=== PATIENT | female | born 1955 | race Caucasian/White ===

== ENCOUNTER 2021-10-28 16:48 | Outpatient (CLI) | payer OTHER, BC, SELFPAY ==
--- OUTSIDE RECORDS SUMMARY | 2021-11-05 11:22 | XMS_ITS | Clinical Summary ---
:1955 Author Organization [employer] [facility] [place] [address] Care Team Providers Name Role Phone Shahida Muir MD Primary Care Provider + [phone] Allergies Active Allergy Reactions Severity Noted Date Comments Unlisted Allergen (Include Detail In Hives 07/2017 Red Dye 3 Comments) Oxycodone-Acetaminophen Hives 02/22/2012 Medications Medication Sig Dispensed Refills Start Date End Date Status metFORMIN (GLUCOPHAGE Take 1 Tablet (500 90 Tablet 4 1 Active XR) 500 mg mg) by mouth once Extended-Release daily with a meal. tabletIndications: Insulin resistance Active Problems Problem Noted Date Insulin resistance 12/07/2015 Vitamin D deficiency 06/19/2013 Pre-diabetes 08/18/2011 Depressive disorder, not elsewhere classified 10/27/19 07 Migraine, unspecified, without mention of intractable migraine without 10/26/2006 mention of status migrainosus Obesity, unspecified 10/26/2006 Immunizations Name Administration Dates Next Due Influenza, IIV3 (Age >=3 years) 12/18/2007 Influenza, IIV4 01/05/2021, 11/05/2019, 10/23/2018, 03/13/2018 Td (Age >=7 Years) 09/11/2017 Tdap 09/12/2018, 10/26/2006 Zoster (Shingrix-RZV, recombinant) 12/25/2018, 10/23/2018 Family History Medical History Relation Name Comments Diabetes Brother Other Daughter migraine Psychiatric illness Daughter Dementia Father Diabetes Father Cancer-breast Maternal Aunt Other Maternal Grandmother migraine Psychiatric illness Maternal Grandmother Cancer-colon Maternal Uncle maternal uncle Other Mother migraine Psychiatric illness Mother Cancer-prostate Paternal Uncle Diabetes Sister Relation Name Status Comments Brother Alive Daughter Father Alive Maternal Aunt Maternal Grandmother Maternal Uncle maternal uncle Mother Alive Paternal Uncle Sister Alive Social History Tobacco Use Types Packs/Day Years Used Date Former Smoker Cigarettes 0.5 15 Quit: 02/06/18 90 Smokeless Tobacco: Never Used Tobacco Cessation: Counseling Given: Yes Alcohol Use Standard Drinks/Week Comments Yes 0 (1 standard drink = 0.6 oz pure alcoho l) rarely Alcohol Habits Answer Date Recorded How often do you have a drink containing alcohol? Not asked How many drinks containing alcohol do you have on a typical Not asked day when you are drinking? How often do you have six or more drinks on one occasion? No t asked Comment: rarely 08/11/2015 Sex Assigned at Date Recorded Not on file Obstetrics History Para Term AB IAB SAB Ectopic Multiple Living Live Births 4 3 3 3 Date Outcome GA Total Labor/2nd/3rd Weight Sex Delivery Anes PTL Alison A 1 A5 Name Clin Labor Term Term Term Last Filed Vital Signs Vital Sign Reading Time Taken Comments Blood Pressure 126/84 01/05/2021 4:26 PM [employer] Pulse 88 01/05/2021 4:26 PM [employer] Temperature 36.9 ??C (98.5 ??F) 11/01/2018 2:07 PM CDT Respiratory Rate 16 01/05/2021 4:26 PM [employer] ADMINISTRATOR Oxygen Saturation 98% 11/01/2018 2:07 PM CDT Inhaled Oxygen Concentration - - Weight 122.5 kg (270 lb) 01/05/2021 4:26 PM [employer]ISTR[employer] Height 169.5 cm (5' 6.75) 01/05/2021 4:26 PM [employer] ADMIN[employer]RATOR Body Mass Index 42.61 01/05/2021 4:26 PM [employer]ISTR[employer] Plan of Treatment Health Maintenance Due Date Last Done Comments COVID-19 vaccine series (4 - 05/10/2021 01/09/2021, 021, Booster for Moderna series) 03/13/2020 Influenza for age 50-64 10/07/2021 01/05/2021, 11/05/2019, 10/23/2018, Additional history exists Mammogram for age 45-75 12/29/2021 12/29/2020, 10/28/2019, 10/29/2018, Additional history exists BMI (ht and wt on same day) for 01/05/2022 01/05/2021, 10/08, age 18+ 10/23/2018, Additional history exists Depression screening for age 12+ 01/05/2022 01/05/2021, , 10/25/2018, Additional history exists Fecal testing non-DNA 01/09/2022 01/09/2021, 11/17/2019 (FIT,FOBT,iFOBT) for age 45-75 Pap test for age 21-65 11/04/2022 11/05/2019, 11/05/2019, 07/30/2014, Additional history exists Lipids for age 45-75 11/04/2024 11/05/2019, 08/11/2015, 07/30/2014, Additional history exists Tetanus booster 09/12/2028 09/12/2018, 09/11/2017, 10/26/2006 Hepatitis C screening for age Completed 05/03/2016 18-79 Tdap Completed 09/12/2018, 10/26/2006 Zoster (shingles) series for age Completed 12/25/2018, 50+ Results Not on filefrom Last 3 Months Insurance Payer Benefit Plan / Subscriber ID Effective Dates Phone Addre ss Type Group WC WORKERS COMP WC [employer] [id number] 2017-Prese [address] [place] [address] [employer] [id number] 2013-Presen [address] [place] [address] [employer] [id number] 2019-Prese [address] [place] [id number] (Home) [place] [id number] [address] [employer] Self 1955 [id number] (Home) [place] [id number] Care Teams Service Consultant Relationship Specialty Start Date End Date Shahida Muir MD PCP - General Family Practice 09/08/[address] [place] [address]
== END 2021-10-28 16:49 | disposition home or self-care (01) ==
LOC: NFLDREF 11-05 11:05
PROVIDERS: Visit Provider Registered Nurse
DX: N89.8 Other specified noninflammatory disorders of vagina (principal)
CPT/HCPCS: 87086

== ENCOUNTER 2022-09-14 10:04 | Day surgery (SDC) | payer MEDICARE, OTHER, BC, SELFPAY ==
[2022-09-14 10:20] VITALS: BMI 43.8
[2022-09-14] MEDS: SODIUM CHLORIDE 0.9 % (FLUSH) 10 ML SYRINGE IVF (10:40)
[2022-09-14] MEDS: LACTATED RINGERS 1000 ML 1,000 ML 100 ML IV (10:40)
[2022-09-14 10:41] VITALS: BP 140/79; PULSE 76; RESP 16; TEMP 36.4; O2SAT 97
[2022-09-14] MEDS: TETRACAINE 0.5% OPHTH 2 DROP EYE-BOTH (11:26)
[2022-09-14] MEDS: BUPIVACAINE 0.5 %/EPI 1:200K 30 ML INJECTION (11:35)
--- NOTE | 2022-09-14 11:45 | W.ANESCHARGE ---
Anesthesia Charges Start Date/Time Anesthesia Start Date: 09/14/22 Anesthesia Start Time: 11:23 Stop Date/Time Anesthesia Stop Date: 09/14/22 Anesthesia Stop Time: 12:30
--- NOTE | 2022-09-14 12:28 | W.PM.OPTPROC ---
Procedure Note Date of procedure: 09/14/22 Will [facility] bill your pro fee for this procedure?: Yes Procedure Description: SURGEON: Ingrid Longoria MD PREOPERATIVE DIAGNOSIS: Dermatochalasis, bilateral upper eyelids. POSTOPERATIVE DIAGNOSIS: Dermatochalasis, bilateral upper eyelids. NAME OF OPERATION: Bilateral upper eyelid blepharoplasty. ANESTHESIA: Local monitored anesthesia care. ESTIMATED BLOOD LOSS: Less than 2 cc. COMPLICATIONS: None. IMPLANTS: None. INDICATIONS: The patient is seen today for bilateral upper eyelid blepharoplasty. The patient complains of upper eyelids interfering with vision. I reviewed the visual kiser and facial photographs. Surgery was indicated for functional improvement of vision. The risks, benefits and alternatives were discussed pre-operatively. The risks included pain, infection, bleeding, poor cosmetic result, scarring, asymmetry, need for further treatment including surgery, inability to close lids, dry eyes, decreased vision, loss of vision and loss of eye. The benefits included improvement of symptoms. The alternative was observation and no surgery. All questions were answered to the patient's satisfaction, and the patient elected to proceed with the bilateral upper eyelid blepharoplasty. Informed consent was obtained. PROCEDURE: In a sitting position, the upper eyelid crease was marked with a marking pen, and the pinch technique was used to determine the amount of upper eyelid skin to be excised. A calipers was used to measure for symmetry and to confirm an appropriate amount of remaining skin. The patient was taken to the operating room. 4 cc of anesthetic was injected subcutaneously along the full extent of each upper eyelid. This anesthetic was made with 1:1 of 2% lidocaine with epinephrine and 0.5% bupivacaine. Both eyes were prepped and draped in the usual sterile ophthalmic fashion. The following was performed on both the right and left upper eyelid: A #15 blade was used to incise the skin. Bishops and Mehul scissors were used to excise the skin and orbicularis muscle. Handheld cautery was used to achieve hemostasis. The eyelids were examined for symmetry. The skin was closed with a running 6-0 nylon suture. Erythromycin ointment was applied to the wounds. The patient tolerated the procedure well. DISPOSITION: The patient was sent to the recovery room and discharged to home in stable condition. The patient was given my postoperative instructions handout. The patient was told to ice as directed. The patient will apply erythromycin ophthalmic ointment to the eyelids three times a day until the sutures are removed, then for another three days. The patient will follow up in one week for suture removal or sooner as needed. The patient was instructed to call me or go to the emergency department with any sudden change, including dramatic loss of vision, excessive bleeding, redness or discharge from the incisions, or severe pain in the eye.
[2022-09-14 12:30] VITALS: BP 153/78; PULSE 73; RESP 16; TEMP 36.6; O2SAT 95
--- NOTE | 2022-09-14 12:40 | W.ANESCHARGE ---
Anesthesia Charges Start Date/Time Anesthesia Start Date: 09/14/22 Anesthesia Start Time: 11:23 Stop Date/Time Anesthesia Stop Date: 09/14/22 Anesthesia Stop Time: 12:30
[2022-09-14 12:45] VITALS: BP 153/76; PULSE 73; RESP 16; O2SAT 98
[2022-09-14 13:01] VITALS: BP 147/80; PULSE 75; RESP 16; O2SAT 98
--- NOTE | 2022-09-14 13:16 | SUR.PHASEII ---
pt returned to [facility] from OR with 100cc iv fluid remaining
== END 2022-09-14 13:17 | disposition home or self-care (01) ==
PROVIDERS: Visit Provider Ophthalmology
PROC: (CPT 15823; principal; 2022-09-14 11:00)
DX: H02.831 Dermatochalasis of right upper eyelid (principal); H02.834 Dermatochalasis of left upper eyelid; H53.9 Unspecified visual disturbance
CPT/HCPCS: 15823; 103; A9270; J2250; J2704; J3490; J7120